=== PATIENT | male | born 1940 | race Caucasian/White ===

== ENCOUNTER 2016-12-01 13:39 | Inpatient (IN) | payer MEDICARE ==
[~2016-12-01] VITALS: Ht 172.7 cm; Wt 73.7 kg
[~2016-12-01 13:39] MED LIST: ASPIRIN EC81 MG PO; PROTONIX 40 MG40 M1 PO
[2016-12-01 16:08] LABS: HEMOGLOBIN 14.3 gm/dl (14.0-17.5); RED BLOOD COUNT 4.81 M/UL (4.20-5.50); WHITE BLOOD COUNT 9.6 K/UL (4.5-11.0)
[2016-12-01 16:47] LABS: BUN/CREATININE RATIO 18 (0-10)
[2016-12-01] MEDS ORDERED: MIRAPEX0.125 MG PO (20:11)
[2016-12-01] MEDS ORDERED: KLONOPIN TAB 00.5 MG PO (20:12)
[2016-12-01] MEDS ORDERED: BUSPAR 5MG TABLE5 MG PO (20:12)
[2016-12-01] MEDS ORDERED: LIPITOR TAB 2020 MG PO (20:12)
[2016-12-01] MEDS ORDERED: NORVASC10 MG PO (20:13)
[2016-12-01] MEDS ORDERED: SOTALOL80 MG PO (20:13)
[2016-12-01] MEDS ORDERED: NEURONTIN 400400 MG PO (20:13)
[2016-12-01] MEDS ORDERED: OXYCODONE-ACET1 EACH PO (20:14)
[2016-12-01] MEDS ORDERED: FOLIC ACID1 MG PO (20:14)
[2016-12-03] MEDS ORDERED: PROVENTIL HFA 61 INH INH (10:20)
[2016-12-03] MEDS ORDERED: SYMBICORT 160-1 INHA INH (10:21)
[2016-12-03] MEDS ORDERED: MAG-OX 400 TAB400 MG PO (10:44)
[2016-12-03] MEDS ORDERED: ADULT LOW DOSE81 MG PO (10:44)
[2016-12-03] MEDS ORDERED: IPRAT-ALBUT 0.5-3 ML INH (10:45)
[2016-12-03] MEDS ORDERED: THERAGRAN TAB1 EA PO (10:45)
[2016-12-03] MEDS ORDERED: VITAMIN B-1 5050 MG PO (10:46)
[2016-12-03] MEDS ORDERED: ALDACTONE25 MG PO (10:46)
== END 2016-12-03 08:09 | disposition home or self-care (01) | DRG 535 ==
LOC: ER1 13:39 → ZEROF 16:05 → M/S 18:58
PROVIDERS: Emergency Medicine; ADMIT Family Medicine
DX: S72.115A Nondisplaced fracture of greater trochanter of left femur, initial encounter for closed fracture (principal); J96.02 Acute respiratory failure with hypercapnia; J96.01 Acute respiratory failure with hypoxia; I50.32 Chronic diastolic (congestive) heart failure; I47.2 Ventricular tachycardia; W19.XXXA Unspecified fall, initial encounter; F19.90 Other psychoactive substance use, unspecified, uncomplicated; I48.0 Paroxysmal atrial fibrillation; I25.10 Atherosclerotic heart disease of native coronary artery without angina pectoris; Z95.5 Presence of coronary angioplasty implant and graft; E87.6 Hypokalemia; Z91.14 Patient's other noncompliance with medication regimen; Z91.19 Patient's noncompliance with other medical treatment and regimen; I10 Essential (primary) hypertension; E78.5 Hyperlipidemia, unspecified; J44.9 Chronic obstructive pulmonary disease, unspecified; K76.0 Fatty (change of) liver, not elsewhere classified; F10.21 Alcohol dependence, in remission; M54.5 Low back pain; G89.29 Other chronic pain; M19.90 Unspecified osteoarthritis, unspecified site; K21.9 Gastro-esophageal reflux disease without esophagitis; F41.9 Anxiety disorder, unspecified; D69.6 Thrombocytopenia, unspecified; I25.2 Old myocardial infarction; F17.210 Nicotine dependence, cigarettes, uncomplicated; Z88.8 Allergy status to other drugs, medicaments and biological substances; Z88.5 Allergy status to narcotic agent; Z88.6 Allergy status to analgesic agent; Z79.899 Other long term (current) drug therapy; Z82.49 Family history of ischemic heart disease and other diseases of the circulatory system; I51.7 Cardiomegaly; M51.9 Unspecified thoracic, thoracolumbar and lumbosacral intervertebral disc disorder
CPT/HCPCS: 36415; 36600; 70450; 71010; 72125; 72192; 73030; 73502; 80053; 82803; 85025; 85610; 85730; 93005; 94640; 94660; 94664; 96374; 97116; 97530; 99285; J1940; J2270; J2930; Q0162

== ENCOUNTER → 2020-09-08 | Outpatient (CLI) | payer MEDICARE ==
[~2020-09-08] MED LIST changes: +ADULT LOW DOSE81 MG PO; +ALDACTONE25 MG PO; +ASPIR-TRIN325 MG PO; +B-121000 MCG PO; +BUSPAR 5MG TABLE5 MG PO; +CARDIZEM CD180 MG PO; +ECOTRIN81 MG PO; +FLEXERIL 10 MG10 MG PO; +FOLIC ACID1 MG PO; +HABITROL 21 MG P1 EA TD; +HYDROCHLOROTHIA25 MG PO; +IMDUR ER TAB 6060 MG PO; +IPRAT-ALBUT 0.5-3 ML INH; +KLONOPIN TAB 00.5 MG PO; +LIORESAL TAB 1010 MG PO; +LIPITOR TAB 2020 MG PO; +MAG-OX 400 TAB400 MG PO; +MIRAPEX0.125 MG PO; +NAPROSYN500 MG PO; +NEURONTIN 400400 MG PO; +NITROSTAT0.4 MG SL; +NORVASC10 MG PO; +NORVASC5 MG PO; +OXYCODONE-ACET1 EACH PO; +OXYCONTIN10 MG PO; +PERCOCET 10-321 EACH PO; +PLAVIX 75 MG TA75 MG PO; +PROAIR HFA8.5 GM INH; +PROTONIX40 MG PO; +PROVENTIL HFA 61 INH INH; +RANEXA500 MG PO; +REMERON15 MG PO; +ROBITUSSIN100 MG/51 PO; +SOTALOL80 MG PO; +SYMBICORT 160-1 INHA INH; +THERAGRAN TAB1 EA PO; +TOPROL XL25 MG PO; +TYLENOL 325MG325 MG PO; +VITAMIN B-1 5050 MG PO; +VITAMIN B-1100 M1 PO; +VITAMIN B-12 PO; +VITAMIN B6 PO; +ZANTAC150 MG PO
[2020-09-08 11:29] LABS: BUN/CREATININE RATIO 22 (0-10)
[2020-09-08 11:35] LABS: HEMOGLOBIN 15.4 gm/dl (14.0-17.5); RED BLOOD COUNT 4.98 M/UL (4.20-5.50); WHITE BLOOD COUNT 7.5 K/UL (4.5-11.0)
[2020-09-12 11:14] LABS: CHOLESTEROL, TOTAL 136 mg/dL (100-199); HDL SIZE 9.6 nm (>=9.2); HDL-C 46 mg/dL (>39); HDL-P (TOTAL) 25.5 umol/L (>=30.5); LARGE HDL-P 5.7 umol/L (>=4.8); LDL SIZE 20.6 nm (>20.5); LDL SIZE 20.6 nm (>=20.8); LDL-C 71 mg/dL (0-99); LDL-P 919 nmol/L (<1000); LP-IR SCORE 46 (<=45); SMALL LDL-P 483 nmol/L (<=527); TRIGLYCERIDES 105 mg/dL (0-149); VLDL SIZE 47.7 nm (<=46.6)
== END ==
LOC: LAB 10:08
PROVIDERS: Emergency Medicine; Internal Medicine Cardiovascular Disease
DX: Z00.00 Encounter for general adult medical examination without abnormal findings (principal); R07.9 Chest pain, unspecified; E78.2 Mixed hyperlipidemia; H61.23 Impacted cerumen, bilateral; I10 Essential (primary) hypertension; I25.10 Atherosclerotic heart disease of native coronary artery without angina pectoris; K80.46 Calculus of bile duct with acute and chronic cholecystitis without obstruction; I65.29 Occlusion and stenosis of unspecified carotid artery; I48.0 Paroxysmal atrial fibrillation
CPT/HCPCS: 36415; 71046; 80053; 84443; 84550; 85025

== ENCOUNTER → 2020-09-11 | Outpatient (CLI) | payer MEDICARE | LOC: ECHO 11:00 | DX: I25.10 Atherosclerotic heart disease of native coronary artery without angina pectoris (principal); R07.9 Chest pain, unspecified; I27.20 Pulmonary hypertension, unspecified; R93.1 Abnormal findings on diagnostic imaging of heart and coronary circulation; I07.1 Rheumatic tricuspid insufficiency | CPT/HCPCS: ECHO; 93306 ==

== ENCOUNTER 2021-02-16 16:57 | Inpatient (IN) | payer MEDICARE ==
[~2021-02-16] VITALS: Ht 172.7 cm; Wt 69.9 kg
[~2021-02-16 16:57] MED LIST changes: -BUSPAR 5MG TABLE5 MG PO; -MIRAPEX0.125 MG PO; -PERCOCET 10-321 EACH PO
[2021-02-16 17:51] LABS: HEMOGLOBIN 13.2 gm/dl (14.0-17.5); RED BLOOD COUNT 4.24 M/UL (4.20-5.50); WHITE BLOOD COUNT 7.1 K/UL (4.5-11.0)
[2021-02-17 04:50] LABS: HEMOGLOBIN 13.4 gm/dl (14.0-17.5); RED BLOOD COUNT 4.46 M/UL (4.20-5.50); WHITE BLOOD COUNT 7.1 K/UL (4.5-11.0)
[2021-02-17] MEDS ORDERED: PERCOCET 10-321 EACH PO (08:43)
[2021-02-17] MEDS ORDERED: GABAPENTIN600 MG PO (10:09)
[2021-02-17] MEDS ORDERED: LASIX 40 MG TAB40 MG PO (10:13)
[2021-02-17] MEDS ORDERED: COZAAR100 MG PO (10:16)
[2021-02-17] MEDS ORDERED: VENTOLIN HFA 66.7 GM INH (10:24)
[2021-02-17] MEDS ORDERED: PROTONIX 40 MG40 M1 PO ×2 (10:26→10:35)
[2021-02-17] MEDS ORDERED: CALCIUM 600 +1 EAC7 PO (10:27)
[2021-02-17] MEDS ORDERED: IPRAT-ALBUT 0.5-3 ML NEB (12:35)
[2021-02-17] MEDS ORDERED: SPIRIVA18 MCG INH (12:35)
[2021-02-17] MEDS ORDERED: OMNICEF 300 MG300 MG PO (12:35)
[2021-02-17] MEDS ORDERED: SYMBICORT 160-1 INHA INH (12:35)
[2021-02-17] MEDS ORDERED: MEDROL DOSEPAK 24 MG PO (12:35)
[2021-02-17] MEDS ORDERED: DOXYCYCLINE HY100 M2 PO (12:35)
[2021-02-17] MEDS ORDERED: NITROSTAT0.4 MG SL (13:07)
[2021-02-17] MEDS ORDERED: MIRAPEX0.125 MG PO (20:11)
[2021-02-17] MEDS ORDERED: BUSPAR 10MG10 MG PO (20:12)
== END 2021-02-17 14:00 | disposition home or self-care (01) | DRG 315 ==
LOC: ER1 16:57 → CDU 20:12
PROVIDERS: Physician Assistant Medical; ADMIT Internal Medicine
DX: I95.9 Hypotension, unspecified (principal); N17.9 Acute kidney failure, unspecified; J96.10 Chronic respiratory failure, unspecified whether with hypoxia or hypercapnia; J44.1 Chronic obstructive pulmonary disease with (acute) exacerbation; I50.32 Chronic diastolic (congestive) heart failure; F17.210 Nicotine dependence, cigarettes, uncomplicated; E78.5 Hyperlipidemia, unspecified; K76.0 Fatty (change of) liver, not elsewhere classified; I25.119 Atherosclerotic heart disease of native coronary artery with unspecified angina pectoris; M19.90 Unspecified osteoarthritis, unspecified site; K21.9 Gastro-esophageal reflux disease without esophagitis; I48.0 Paroxysmal atrial fibrillation; G89.29 Other chronic pain; M54.9 Dorsalgia, unspecified; F10.10 Alcohol abuse, uncomplicated; Z20.822 Contact with and (suspected) exposure to COVID-19; I11.0 Hypertensive heart disease with heart failure; E87.5 Hyperkalemia; I27.20 Pulmonary hypertension, unspecified; Z79.82 Long term (current) use of aspirin; Z95.1 Presence of aortocoronary bypass graft; Z88.8 Allergy status to other drugs, medicaments and biological substances; Z82.49 Family history of ischemic heart disease and other diseases of the circulatory system; Z91.14 Patient's other noncompliance with medication regimen; Z79.02 Long term (current) use of antithrombotics/antiplatelets
CPT/HCPCS: 36600; 71045; 80048; 80053; 82550; 82553; 82803; 83874; 83880; 84484; 85025; 86140; 87040; 93005; 99285; J1250; J1650; U0002

== ENCOUNTER → 2021-02-23 | Outpatient (CLI) | payer MEDICARE ==
[~2021-02-23] MED LIST changes: +BUSPAR 10MG10 MG PO; +CALCIUM 600 +1 EAC7 PO; +COZAAR100 MG PO; +DOXYCYCLINE HY100 M2 PO; +GABAPENTIN600 MG PO; +IPRAT-ALBUT 0.5-3 ML NEB; +LASIX 40 MG TAB40 MG PO; +MEDROL DOSEPAK 24 MG PO; +MIRAPEX0.125 MG PO; +OMNICEF 300 MG300 MG PO; +PERCOCET 10-321 EACH PO; +SPIRIVA18 MCG INH; +VENTOLIN HFA 66.7 GM INH
[2021-02-23 18:04] LABS: BUN/CREATININE RATIO 23 (0-10)
== END ==
LOC: LAB 15:41
PROVIDERS: Internal Medicine
DX: N17.9 Acute kidney failure, unspecified (principal); I50.9 Heart failure, unspecified
CPT/HCPCS: 36415; 80048; 83880

== ENCOUNTER 2021-03-03 13:53 | Observation (INO) | payer MEDICARE, MEDICAID ==
[~2021-03-03] VITALS: Ht 172.7 cm; Wt 73.9 kg
[2021-03-03 14:42] LABS: HEMOGLOBIN 16.4 gm/dl (14.0-17.5); RED BLOOD COUNT 5.08 M/UL (4.20-5.50); WHITE BLOOD COUNT 8.8 K/UL (4.5-11.0)
[2021-03-03 15:15] LABS: BUN/CREATININE RATIO 12 (0-10)
[2021-03-04 04:54] LABS: HEMOGLOBIN 15.7 gm/dl (14.0-17.5); RED BLOOD COUNT 4.94 M/UL (4.20-5.50); WHITE BLOOD COUNT 7.9 K/UL (4.5-11.0)
[2021-03-04 05:40] LABS: BUN/CREATININE RATIO 14 (0-10)
--- NOTE | 2021-03-05 02:33 | NUR ---
PT REFUSES NPO STATUS. STATES HE CAN REFUSE OR DO ANYTHING HE WANTS. PT ADVISED THAT CARDIOLOGY MAY WANT TO DO SOMETHING IN THE AM BUT PT REFUSES. PT ALERT AND ORIENTED X3
[2021-03-05 05:57] LABS: BUN/CREATININE RATIO 16 (0-10)
== END 2021-03-05 13:04 | disposition home or self-care (01) ==
LOC: ER1 13:53 → M/S 16:41 → CDU 16:41 → M/S 23:45
PROVIDERS: Emergency Medicine; Physician Assistant Medical; ADMIT Internal Medicine
DX: R07.2 Precordial pain (principal); I25.2 Old myocardial infarction; Z95.5 Presence of coronary angioplasty implant and graft; F17.200 Nicotine dependence, unspecified, uncomplicated; E87.6 Hypokalemia; R19.7 Diarrhea, unspecified; E78.5 Hyperlipidemia, unspecified; I11.0 Hypertensive heart disease with heart failure; I50.32 Chronic diastolic (congestive) heart failure; I71.4 Abdominal aortic aneurysm, without rupture; K21.9 Gastro-esophageal reflux disease without esophagitis; J44.9 Chronic obstructive pulmonary disease, unspecified; J96.12 Chronic respiratory failure with hypercapnia; J96.11 Chronic respiratory failure with hypoxia; K76.0 Fatty (change of) liver, not elsewhere classified; Z88.8 Allergy status to other drugs, medicaments and biological substances; I25.10 Atherosclerotic heart disease of native coronary artery without angina pectoris; Z20.822 Contact with and (suspected) exposure to COVID-19
CPT/HCPCS: 36415; 71045; 74170; 80048; 80053; 82550; 82553; 83735; 83874; 84484; 85025; 85027; 93005; 99285; G0378; J7030; Q9967; U0002

== ENCOUNTER → 2021-03-20 | Outpatient (CLI) | payer MEDICARE | LOC: HEART 5 03-12 09:15 | DX: R07.9 Chest pain, unspecified (principal); R00.2 Palpitations | CPT/HCPCS: 78452; A9502; J2785 ==

== ENCOUNTER 2021-04-08 16:07 | Emergency (ER) | payer MEDICARE ==
[2021-04-08 17:19] LABS: HEMOGLOBIN 13.9 gm/dl (14.0-17.5); RED BLOOD COUNT 4.43 M/UL (4.20-5.50); WHITE BLOOD COUNT 7.6 K/UL (4.5-11.0)
[2021-04-08 17:52] LABS: BUN/CREATININE RATIO 14 (0-10)
== END 2021-04-08 19:00 | disposition home or self-care (01) ==
LOC: ER1 16:07
PROVIDERS: Family Medicine
DX: R07.9 Chest pain, unspecified (principal); F17.210 Nicotine dependence, cigarettes, uncomplicated
CPT/HCPCS: 71045; 80053; 82550; 82553; 83874; 84484; 85025; 93005; 99285

== ENCOUNTER 2021-04-15 00:15 | Inpatient (IN) | payer MEDICARE ==
[~2021-04-15] VITALS: Ht 175.3 cm; Wt 73.0 kg
[~2021-04-15 00:15] MED LIST changes: -LIPITOR TAB 2020 MG PO
[2021-04-15 01:15] LABS: HEMOGLOBIN 13.7 gm/dl (14.0-17.5); RED BLOOD COUNT 4.28 M/UL (4.20-5.50); WHITE BLOOD COUNT 9.2 K/UL (4.5-11.0)
[2021-04-15 02:29] LABS: BUN/CREATININE RATIO 15 (0-10)
[2021-04-15] MEDS ORDERED: GABAPENTIN600 MG PO (07:37)
[2021-04-15] MEDS ORDERED: LOSARTAN POTAS100 MG PO (07:39)
[2021-04-15] MEDS ORDERED: RANEXA1000 MG PO ×2 (07:41→08:09)
[2021-04-15] MEDS ORDERED: PROTONIX40 MG PO (08:11)
[2021-04-15] MEDS ORDERED: VITAMIN C 500500 MG PO (08:12)
[2021-04-15] MEDS ORDERED: PROAIR HFA8.5 GM INH (08:12)
[2021-04-15] MEDS ORDERED: SYMBICORT 16010.2 GM INH (08:13)
[2021-04-15] MEDS ORDERED: EMERGEN-C 500500 MG PO (08:15)
[2021-04-15] MEDS ORDERED: LIPITOR40 MG PO (20:12)
[2021-04-16 03:08] LABS: HEMOGLOBIN 11.9 gm/dl (14.0-17.5); WHITE BLOOD COUNT 9.3 K/UL (4.5-11.0)
[2021-04-16 03:12] LABS: RED BLOOD COUNT 3.78 M/UL (4.20-5.50)
[2021-04-16 03:26] LABS: BUN/CREATININE RATIO 18 (0-10)
[2021-04-17 03:27] LABS: RED BLOOD COUNT 3.82 M/UL (4.20-5.50)
[2021-04-17 04:12] LABS: BUN/CREATININE RATIO 27 (0-10)
--- NOTE | 2021-04-17 23:43 | NUR ---
PT EXPRESSING CONCERNS WITH WEARING HIS NEWLY SET UP TRILOGY MACHINE. WORRIES THAT THERE ISN'T ENOUGH PRESSURE COMING THROUGH TRILOGY. REQUESTING TO WEAR THE HOSPITAL'S BIPAP LIKE HE HAD BEEN WEARING AND ASK FOR ADJUSTMENTS TO THE TRILOGY TOMORROW.
[2021-04-18 02:51] LABS: HEMOGLOBIN 12.5 gm/dl (14.0-17.5); RED BLOOD COUNT 3.96 M/UL (4.20-5.50); WHITE BLOOD COUNT 11.5 K/UL (4.5-11.0)
[2021-04-18 06:20] LABS: BUN/CREATININE RATIO 24 (0-10)
[2021-04-19 03:16] LABS: HEMOGLOBIN 13.3 gm/dl (14.0-17.5); RED BLOOD COUNT 4.25 M/UL (4.20-5.50)
[2021-04-19 03:35] LABS: BUN/CREATININE RATIO 29 (0-10)
--- NOTE | 2021-04-19 10:00 | NUR ---
SPOKE WITH PULMONOLOGY AND CASE MANAGEMENT REGARDING TRILOGY SETTINGS. THEY STATE THAT THE COMPANY WILL COME OUT TO ADJUST THE SETTINGS WHEN PATIENT IS DISCHARGED.
[2021-04-19] MEDS ORDERED: CEFDINIR300 MG PO (10:07)
[2021-04-19] MEDS ORDERED: NICOTINE PATCH1 EAC2 TOP (10:07)
[2021-04-19] MEDS ORDERED: IPRAT-ALBUT 0.5-3 ML NEB (10:07)
[2021-04-19] MEDS ORDERED: MEDROL DOSEPAK 24 MG PO (10:15)
== END 2021-04-19 12:36 | disposition home or self-care (01) | DRG 189 ==
LOC: ER1 00:15 → PROG CARE 03:52 → CDU 03:52 → PROG CARE 07:26
PROVIDERS: Family Medicine; Internal Medicine; ADMIT Internal Medicine
PROC: 5A09457 Assistance with Respiratory Ventilation, 24-96 Consecutive Hours, Continuous Positive Airway Pressure (ICD-10-PCS; principal; 2021-04-15)
DX: J96.21 Acute and chronic respiratory failure with hypoxia (principal); I50.32 Chronic diastolic (congestive) heart failure; J44.1 Chronic obstructive pulmonary disease with (acute) exacerbation; J96.22 Acute and chronic respiratory failure with hypercapnia; Z20.822 Contact with and (suspected) exposure to COVID-19; I11.0 Hypertensive heart disease with heart failure; K76.0 Fatty (change of) liver, not elsewhere classified; K21.9 Gastro-esophageal reflux disease without esophagitis; F10.10 Alcohol abuse, uncomplicated; F17.210 Nicotine dependence, cigarettes, uncomplicated; E78.5 Hyperlipidemia, unspecified; I27.20 Pulmonary hypertension, unspecified; F41.9 Anxiety disorder, unspecified; E87.6 Hypokalemia; J84.10 Pulmonary fibrosis, unspecified; E88.09 Other disorders of plasma-protein metabolism, not elsewhere classified; I71.4 Abdominal aortic aneurysm, without rupture; M19.91 Primary osteoarthritis, unspecified site; I48.0 Paroxysmal atrial fibrillation; M54.9 Dorsalgia, unspecified; G89.29 Other chronic pain; I25.10 Atherosclerotic heart disease of native coronary artery without angina pectoris; Z95.1 Presence of aortocoronary bypass graft; Z95.5 Presence of coronary angioplasty implant and graft; Z82.49 Family history of ischemic heart disease and other diseases of the circulatory system; Z88.8 Allergy status to other drugs, medicaments and biological substances; Z88.6 Allergy status to analgesic agent; Z79.82 Long term (current) use of aspirin; Z79.899 Other long term (current) drug therapy; Z79.52 Long term (current) use of systemic steroids; Z79.02 Long term (current) use of antithrombotics/antiplatelets
CPT/HCPCS: ECHO; 36415; 36600; 71045; 80048; 80053; 81001; 82550; 82553; 82803; 83605; 84484; 85025; 85027; 85610; 86140; 87040; 93005; 93306; 94640; 94660; 94664; 94668; 94760; 96374; 97161; 99285; C9113; J0696; J1650; J2920; J2930; U0002

== ENCOUNTER 2021-04-26 07:56 | Inpatient (IN) | payer MEDICARE, MEDICAID ==
[~2021-04-26] VITALS: Ht 172.7 cm; Wt 73.0 kg
[~2021-04-26 07:56] MED LIST changes: +CEFDINIR300 MG PO; +COZAAR 50MG TAB50 MG PO; +EMERGEN-C 500500 MG PO; +LIPITOR40 MG PO; +NICOTINE PATCH1 EAC2 TOP; +RANEXA1000 MG PO; +SYMBICORT 16010.2 GM INH; +VITAMIN C 500500 MG PO
[2021-04-26 08:17] LABS: HEMOGLOBIN 13.9 gm/dl (14.0-17.5); RED BLOOD COUNT 4.36 M/UL (4.20-5.50)
[2021-04-26 08:37] LABS: BUN/CREATININE RATIO 27 (0-10)
[2021-04-26] MEDS ORDERED: ISOSORBIDE MONO60 MG PO (10:21)
[2021-04-26] MEDS ORDERED: ZINC50 M3 PO (10:25)
[2021-04-26] MEDS ORDERED: TYLENOL EXTRA500 MG PO (10:26)
[2021-04-26] MEDS ORDERED: VITAMIN D210 MCG PO (10:26)
[2021-04-26 13:27] LABS: HEMOGLOBIN 14.7 gm/dl (14.0-17.5); RED BLOOD COUNT 4.62 M/UL (4.20-5.50)
[2021-04-26 13:29] LABS: WHITE BLOOD COUNT 26.8 K/UL (4.5-11.0)
--- NOTE | 2021-04-26 16:05 | NUR ---
1142: PATIENT ARRIVED TO ICU. LUI GONZALEZ TRANSPORTING WITH PATIENT. PATIENT ON VENTILATOR, R IJ IN PLACE.
--- NOTE | 2021-04-26 16:06 | NUR ---
1230: TTM INITIATED AND PRTOTOCOL BEING MANAGED BY DR. GLEASON. DR. GLEASON AWARE OF PATIENT CODE STATUS AND ORDERS TO CONTINUE WITH TTM PROTOCOL WRITTEN. PADS PLACES APPROPRIATLEY ACCORDING TO DIRECTIONS ON PADS. ESOPHOGEAL TEMP PROBE AND RECTAL PROBE.
[2021-04-26 20:53] LABS: WHITE BLOOD COUNT 24.7 K/UL (4.5-11.0)
[2021-04-26 20:58] LABS: RED BLOOD COUNT 3.83 M/UL (4.20-5.50)
[2021-04-26 21:22] LABS: BUN/CREATININE RATIO 34 (0-10)
[2021-04-27 03:31] LABS: HEMOGLOBIN 11.9 gm/dl (14.0-17.5); RED BLOOD COUNT 3.79 M/UL (4.20-5.50)
[2021-04-27 04:01] LABS: BUN/CREATININE RATIO 34 (0-10)
[2021-04-27 09:45] LABS: HEMOGLOBIN 11.5 gm/dl (14.0-17.5); RED BLOOD COUNT 3.62 M/UL (4.20-5.50); WHITE BLOOD COUNT 17.8 K/UL (4.5-11.0)
[2021-04-27 10:11] LABS: BUN/CREATININE RATIO 30 (0-10)
[2021-04-27 15:21] LABS: HEMOGLOBIN 11.7 gm/dl (14.0-17.5); RED BLOOD COUNT 3.72 M/UL (4.20-5.50); WHITE BLOOD COUNT 21.9 K/UL (4.5-11.0)
[2021-04-27 16:00] LABS: BUN/CREATININE RATIO 26 (0-10)
[2021-04-27 20:28] LABS: HEMOGLOBIN 11.4 gm/dl (14.0-17.5); RED BLOOD COUNT 3.62 M/UL (4.20-5.50); WHITE BLOOD COUNT 24.3 K/UL (4.5-11.0)
[2021-04-28 02:20] LABS: HEMOGLOBIN 11.4 gm/dl (14.0-17.5); RED BLOOD COUNT 3.57 M/UL (4.20-5.50); WHITE BLOOD COUNT 25.3 K/UL (4.5-11.0)
[2021-04-28 02:44] LABS: BUN/CREATININE RATIO 24 (0-10)
[2021-04-28 06:59] LABS: BUN/CREATININE RATIO 23 (0-10)
[2021-04-28 07:57] LABS: HEMOGLOBIN 11.2 gm/dl (14.0-17.5); RED BLOOD COUNT 3.61 M/UL (4.20-5.50)
[2021-04-28 08:26] LABS: WHITE BLOOD COUNT 32.5 K/UL (4.5-11.0)
[2021-04-29 05:05] LABS: HEMOGLOBIN 11.5 gm/dl (14.0-17.5); RED BLOOD COUNT 3.63 M/UL (4.20-5.50)
[2021-04-29 05:07] LABS: WHITE BLOOD COUNT 16.6 K/UL (4.5-11.0)
[2021-04-29 05:47] LABS: BUN/CREATININE RATIO 25 (0-10)
[2021-04-30 06:16] LABS: HEMOGLOBIN 12.1 gm/dl (14.0-17.5); RED BLOOD COUNT 3.85 M/UL (4.20-5.50)
[2021-04-30 06:19] LABS: BUN/CREATININE RATIO 23 (0-10)
[2021-04-30 06:22] LABS: WHITE BLOOD COUNT 8.9 K/UL (4.5-11.0)
[2021-05-01 04:27] LABS: HEMOGLOBIN 11.4 gm/dl (14.0-17.5); RED BLOOD COUNT 3.62 M/UL (4.20-5.50)
[2021-05-01 05:12] LABS: BUN/CREATININE RATIO 25 (0-10)
[2021-05-02 05:51] LABS: HEMOGLOBIN 11.2 gm/dl (14.0-17.5); RED BLOOD COUNT 3.59 M/UL (4.20-5.50); WHITE BLOOD COUNT 7.5 K/UL (4.5-11.0)
[2021-05-02 06:34] LABS: BUN/CREATININE RATIO 17 (0-10)
[2021-05-03 04:53] LABS: HEMOGLOBIN 10.9 gm/dl (14.0-17.5); RED BLOOD COUNT 3.43 M/UL (4.20-5.50); WHITE BLOOD COUNT 8.7 K/UL (4.5-11.0)
[2021-05-03 05:24] LABS: BUN/CREATININE RATIO 18 (0-10)
[2021-05-04 05:23] LABS: BUN/CREATININE RATIO 26 (0-10)
[2021-05-05 04:38] LABS: HEMOGLOBIN 10.2 gm/dl (14.0-17.5); RED BLOOD COUNT 3.25 M/UL (4.20-5.50); WHITE BLOOD COUNT 7.1 K/UL (4.5-11.0)
[2021-05-05 04:54] LABS: BUN/CREATININE RATIO 30 (0-10)
--- NOTE | 2021-05-06 03:16 | NUR ---
05/05/21 2200 NG TUBE STOPPED UP, MEDS WASTED AND THEN PULLED AGAIN AND GIVEN
[2021-05-06 09:16] LABS: HEMOGLOBIN 10.2 gm/dl (14.0-17.5); RED BLOOD COUNT 3.28 M/UL (4.20-5.50); WHITE BLOOD COUNT 7.1 K/UL (4.5-11.0)
[2021-05-06 09:40] LABS: BUN/CREATININE RATIO 34 (0-10)
[2021-05-07 04:09] LABS: HEMOGLOBIN 10.4 gm/dl (14.0-17.5); RED BLOOD COUNT 3.34 M/UL (4.20-5.50)
[2021-05-07 04:15] LABS: WHITE BLOOD COUNT 9.5 K/UL (4.5-11.0)
[2021-05-07 04:40] LABS: BUN/CREATININE RATIO 33 (0-10)
[2021-05-08 05:13] LABS: HEMOGLOBIN 11.6 gm/dl (14.0-17.5)
[2021-05-08 05:28] LABS: RED BLOOD COUNT 3.7 M/UL (4.20-5.50); WHITE BLOOD COUNT 12.5 K/UL (4.5-11.0)
[2021-05-08 05:34] LABS: BUN/CREATININE RATIO 35 (0-10)
[2021-05-09 03:09] LABS: RED BLOOD COUNT 3.62 M/UL (4.20-5.50); WHITE BLOOD COUNT 11.1 K/UL (4.5-11.0)
[2021-05-09 03:32] LABS: BUN/CREATININE RATIO 27 (0-10)
--- NOTE | 2021-05-09 17:54 | NUR ---
PATIENT ARRIVED TO FLOOR FROM ICU. PATIENT IS ALERT AND VERBAL. ORIENTED TO SELF ONLY. FAMILY AT BEDSIDE. 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 OXYGEN IN USE AT 2LPM/NC. NO ACUTE DISTRESS NOTED. CALL [facility] IN [facility]. ORIENTED PATIENT'S FAMILY TO FLOOR.
[2021-05-10 06:49] LABS: HEMOGLOBIN 12.1 gm/dl (14.0-17.5); RED BLOOD COUNT 3.95 M/UL (4.20-5.50)
[2021-05-10 07:14] LABS: BUN/CREATININE RATIO 31 (0-10)
[2021-05-11 08:03] LABS: HEMOGLOBIN 13.3 gm/dl (14.0-17.5); RED BLOOD COUNT 4.26 M/UL (4.20-5.50); WHITE BLOOD COUNT 9.7 K/UL (4.5-11.0)
[2021-05-12 06:59] LABS: HEMOGLOBIN 11.8 gm/dl (14.0-17.5); WHITE BLOOD COUNT 8.8 K/UL (4.5-11.0)
[2021-05-12 07:11] LABS: RED BLOOD COUNT 3.78 M/UL (4.20-5.50)
--- NOTE | 2021-05-13 06:55 | NUR ---
DAUGHTER HAD ORIGINALLY REFUSED GABAPENTIN FOR PT. SHE STATED THAT SHE WANTED THE PT TO SLEEP AND NOT BE WOKEN UP. GABAPENTIN WAS RETURNED TO THE [facility]. PT NOW REQUESTING 0600 GABAPENTIN. GABAPENTIN ADMINISTERED.
[2021-05-13 08:32] LABS: HEMOGLOBIN 11.3 gm/dl (14.0-17.5); RED BLOOD COUNT 3.67 M/UL (4.20-5.50); WHITE BLOOD COUNT 6.4 K/UL (4.5-11.0)
--- NOTE | 2021-05-13 08:35 | NUR ---
0745 Patient unable to void this AM, states his bladder is hurting. Bladder scanned patient, noted 150ml. Patient had been voiding well since ibarra catheter removed yesterday. Dr Samson called, order obtained for straight cath & obtain urine specimen.
[2021-05-13 09:15] LABS: BUN/CREATININE RATIO 31 (0-10)
[2021-05-14 07:43] LABS: HEMOGLOBIN 10.3 gm/dl (14.0-17.5); RED BLOOD COUNT 3.39 M/UL (4.20-5.50); WHITE BLOOD COUNT 5.2 K/UL (4.5-11.0)
[2021-05-14 08:05] LABS: BUN/CREATININE RATIO 21 (0-10)
--- NOTE | 2021-05-14 10:00 | NUR ---
RN SPOKE WITH DR. VILLAREAL ABOUT PATIENT'S POSSIBLE DISCHARGE TODAY. RN ASKED IF MD WANTED TO CONTINUE PATIENT'S CATHETER AND BLADDER TRAINING, MD STATED YES. RN ASKED MD IF PATIENT WAS TO CONTINUE UTILIZING BIPAP AT FACILITY, MD STATED YES AND ASKED RN TO OBTAIN BIPAP SETTINGS SO AN ORDER COULD BE SENT TO FACILITY. RN OBTAINED SETTINGS AND GAVE THEM TO MD.
[2021-05-14] MEDS ORDERED: ELIQUIS5 MG PO (11:42)
[2021-05-14] MEDS ORDERED: DIGOXIN125 MCG PO (11:45)
[2021-05-14] MEDS ORDERED: FLUZONE QU IM (11:46)
[2021-05-14] MEDS ORDERED: NICOTINE PATCH1 EAC5 TD (11:48)
[2021-05-14] MEDS ORDERED: COREG12.5 MG PO (11:49)
[2021-05-14] MEDS ORDERED: XOPENEX1.25 MG/3 INH (11:49)
[2021-05-14] MEDS ORDERED: K-TAB ER20 MEQ PO (11:50)
--- NOTE | 2021-05-14 15:00 | NUR ---
REPORT CALLED TO MAUREEN AT [facility].
== END 2021-05-14 16:04 | DRG 207 ==
LOC: ER1 07:56 → CCU 09:22 → MED SURG 4 09:22 → CDU 09:22 → CCU 11:42 → MED SURG 4 05-09 17:44
PROVIDERS: Emergency Medicine; Internal Medicine; Internal Medicine Pulmonary Disease; Student in an Organized Health Care Education/Training Program; ADMIT Internal Medicine
PROC: 5A1955Z Respiratory Ventilation, Greater than 96 Consecutive Hours (ICD-10-PCS; principal; 2021-04-26)
PROC: 0BH17EZ Insertion of Endotracheal Airway into Trachea, Via Natural or Artificial Opening (ICD-10-PCS; 2021-04-26)
PROC: 02HV33Z Insertion of Infusion Device into Superior Vena Cava, Percutaneous Approach (ICD-10-PCS; 2021-04-26)
PROC: 5A12012 Performance of Cardiac Output, Single, Manual (ICD-10-PCS; 2021-05-02)
PROC: 0DH67UZ Insertion of Feeding Device into Stomach, Via Natural or Artificial Opening (ICD-10-PCS; 2021-05-02)
PROC: 4A10X4Z Monitoring of Central Nervous Electrical Activity, External Approach (ICD-10-PCS; 2021-05-02)
PROC: 5A09557 Assistance with Respiratory Ventilation, Greater than 96 Consecutive Hours, Continuous Positive Airway Pressure (ICD-10-PCS; 2021-05-07)
DX: J96.01 Acute respiratory failure with hypoxia (principal); A41.9 Sepsis, unspecified organism; I46.9 Cardiac arrest, cause unspecified; J15.1 Pneumonia due to Pseudomonas; G93.41 Metabolic encephalopathy; R65.21 Severe sepsis with septic shock; E87.2 Acidosis; J44.1 Chronic obstructive pulmonary disease with (acute) exacerbation; J44.0 Chronic obstructive pulmonary disease with (acute) lower respiratory infection; J98.11 Atelectasis; I50.32 Chronic diastolic (congestive) heart failure; I42.9 Cardiomyopathy, unspecified; I47.2 Ventricular tachycardia; G93.1 Anoxic brain damage, not elsewhere classified; Z20.822 Contact with and (suspected) exposure to COVID-19; Z66 Do not resuscitate; R45.1 Restlessness and agitation; I25.10 Atherosclerotic heart disease of native coronary artery without angina pectoris; I11.0 Hypertensive heart disease with heart failure; F41.9 Anxiety disorder, unspecified; R33.9 Retention of urine, unspecified; K21.9 Gastro-esophageal reflux disease without esophagitis; I27.20 Pulmonary hypertension, unspecified; I73.9 Peripheral vascular disease, unspecified; T38.0X5A Adverse effect of glucocorticoids and synthetic analogues, initial encounter; S43.005A Unspecified dislocation of left shoulder joint, initial encounter; I08.1 Rheumatic disorders of both mitral and tricuspid valves; M85.80 Other specified disorders of bone density and structure, unspecified site; G89.29 Other chronic pain; M54.9 Dorsalgia, unspecified; E78.5 Hyperlipidemia, unspecified; M19.90 Unspecified osteoarthritis, unspecified site; J44.9 Chronic obstructive pulmonary disease, unspecified; I48.91 Unspecified atrial fibrillation; Z95.1 Presence of aortocoronary bypass graft; Z79.82 Long term (current) use of aspirin; Z79.02 Long term (current) use of antithrombotics/antiplatelets; Z82.49 Family history of ischemic heart disease and other diseases of the circulatory system; Z88.5 Allergy status to narcotic agent; Z88.8 Allergy status to other drugs, medicaments and biological substances; Z99.81 Dependence on supplemental oxygen; Z87.891 Personal history of nicotine dependence; Z23 Encounter for immunization
CPT/HCPCS: 36415; 36556; 36600; 51702; 70450; 70551; 71045; 73020; 73030; 80048; 80053; 80202; 81001; 82040; 82550; 82553; 82803; 82962; 83605; 83735; 83874; 83880; 84100; 84132; 84484; 85025; 85027; 85384; 85610; 85730; 86850; 86900; 86901; 87040; 87070; 87077; 87186; 87205; 90662; 92526; 92610; 93005; 94002; 94003; 94640; 94660; 94664; 94760; 95819; 97110-GP-CQ; 97112; 97162; 97166; 97530; 97530-GP-CQ; 97535; 99285; A6212; C1751; C9113; G0008; J1160; J1205; J1650; J1720; J1940; J2060; J2250; J2270; J2543; J2704; J3010; J3370; J3480; J7030; J7040; J7050; J7070; Q9967; U0002

== ENCOUNTER 2021-06-15 02:26 | Inpatient (IN) | payer MEDICARE ==
[~2021-06-15] VITALS: Ht 172.7 cm; Wt 69.9 kg
[~2021-06-15 02:26] MED LIST changes: +COREG12.5 MG PO; -COZAAR 50MG TAB50 MG PO; +DIGOXIN125 MCG PO; +ELIQUIS5 MG PO; +FLUZONE QU IM; +K-TAB ER20 MEQ PO; -MIRAPEX0.125 MG PO; +NICOTINE PATCH1 EAC5 TD; -PERCOCET 10-321 EACH PO; +VITAMIN D210 MCG PO; +XOPENEX1.25 MG/3 INH; +ZINC50 M3 PO
[2021-06-15 03:34] LABS: HEMOGLOBIN 11.3 gm/dl (14.0-17.5); RED BLOOD COUNT 3.59 M/UL (4.20-5.50); WHITE BLOOD COUNT 7.7 K/UL (4.5-11.0)
[2021-06-15 03:55] LABS: BUN/CREATININE RATIO 6 (0-10)
[2021-06-15] MEDS ORDERED: GABAPENTIN600 MG PO (07:37)
[2021-06-15] MEDS ORDERED: COZAAR 50MG TAB50 MG PO (07:39)
[2021-06-15] MEDS ORDERED: RANEXA500 MG PO (08:09)
[2021-06-15] MEDS ORDERED: PERCOCET 10-321 EACH PO (08:43)
[2021-06-15] MEDS ORDERED: ISOSORBIDE MONO60 MG PO (10:21)
[2021-06-15] MEDS ORDERED: TYLENOL EXTRA500 MG PO (10:26)
[2021-06-15] MEDS ORDERED: LEXAPRO10 MG PO (12:26)
[2021-06-15] MEDS ORDERED: MIRALAX17 GM PO (12:27)
[2021-06-15] MEDS ORDERED: NITROSTAT0.4 MG SL (12:27)
[2021-06-15] MEDS ORDERED: MIRAPEX0.25 MG PO (20:11)
[2021-06-16 04:01] LABS: RED BLOOD COUNT 3.56 M/UL (4.20-5.50); WHITE BLOOD COUNT 6.6 K/UL (4.5-11.0)
[2021-06-16 04:32] LABS: BUN/CREATININE RATIO 9 (0-10)
[2021-06-17 10:39] LABS: HEMOGLOBIN 10.3 gm/dl (14.0-17.5); RED BLOOD COUNT 3.36 M/UL (4.20-5.50); WHITE BLOOD COUNT 5.5 K/UL (4.5-11.0)
[2021-06-17 11:04] LABS: BUN/CREATININE RATIO 6 (0-10)
[2021-06-18 03:59] LABS: HEMOGLOBIN 10.6 gm/dl (14.0-17.5); RED BLOOD COUNT 3.49 M/UL (4.20-5.50); WHITE BLOOD COUNT 5.6 K/UL (4.5-11.0)
[2021-06-18 04:16] LABS: BUN/CREATININE RATIO 10 (0-10)
[2021-06-19 03:40] LABS: HEMOGLOBIN 11.3 gm/dl (14.0-17.5); RED BLOOD COUNT 3.68 M/UL (4.20-5.50); WHITE BLOOD COUNT 5.1 K/UL (4.5-11.0)
[2021-06-19 03:57] LABS: BUN/CREATININE RATIO 4 (0-10)
[2021-06-19] MEDS ORDERED: MEROPENEM1 GM IV (10:31)
== END 2021-06-19 19:57 | disposition home health service (06) | DRG 177 ==
LOC: ER1 02:26 → PROG CARE 08:57 → CDU 08:57 → PROG CARE 14:19
PROVIDERS: Emergency Medicine; Internal Medicine Pulmonary Disease; Student in an Organized Health Care Education/Training Program; ADMIT Internal Medicine
PROC: 0B9K8ZX Drainage of Right Lung, Via Natural or Artificial Opening Endoscopic, Diagnostic (ICD-10-PCS; 2021-06-15)
PROC: 0B9F8ZX Drainage of Right Lower Lung Lobe, Via Natural or Artificial Opening Endoscopic, Diagnostic (ICD-10-PCS; principal; 2021-06-15 11:11)
DX: J69.0 Pneumonitis due to inhalation of food and vomit (principal); J96.21 Acute and chronic respiratory failure with hypoxia; Z66 Do not resuscitate; Z20.822 Contact with and (suspected) exposure to COVID-19; J96.22 Acute and chronic respiratory failure with hypercapnia; I46.8 Cardiac arrest due to other underlying condition; J44.0 Chronic obstructive pulmonary disease with (acute) lower respiratory infection; J98.19 Other pulmonary collapse; G81.94 Hemiplegia, unspecified affecting left nondominant side; I48.20 Chronic atrial fibrillation, unspecified; I50.32 Chronic diastolic (congestive) heart failure; K83.09 Other cholangitis; I25.10 Atherosclerotic heart disease of native coronary artery without angina pectoris; E78.5 Hyperlipidemia, unspecified; I11.0 Hypertensive heart disease with heart failure; F10.10 Alcohol abuse, uncomplicated; J44.9 Chronic obstructive pulmonary disease, unspecified; K80.20 Calculus of gallbladder without cholecystitis without obstruction; E78.00 Pure hypercholesterolemia, unspecified; G89.4 Chronic pain syndrome; L89.322 Pressure ulcer of left buttock, stage 2; F41.9 Anxiety disorder, unspecified; I48.0 Paroxysmal atrial fibrillation; D63.8 Anemia in other chronic diseases classified elsewhere; I73.9 Peripheral vascular disease, unspecified; I27.20 Pulmonary hypertension, unspecified; F31.9 Bipolar disorder, unspecified; E11.9 Type 2 diabetes mellitus without complications; M19.90 Unspecified osteoarthritis, unspecified site; I71.2 Thoracic aortic aneurysm, without rupture; R53.81 Other malaise; Z79.01 Long term (current) use of anticoagulants; Z88.8 Allergy status to other drugs, medicaments and biological substances; Z88.6 Allergy status to analgesic agent; Z88.1 Allergy status to other antibiotic agents; Z91.040 Latex allergy status; Z82.49 Family history of ischemic heart disease and other diseases of the circulatory system; Z95.5 Presence of coronary angioplasty implant and graft; Z99.81 Dependence on supplemental oxygen; Z95.1 Presence of aortocoronary bypass graft; Z87.891 Personal history of nicotine dependence; Z86.73 Personal history of transient ischemic attack (TIA), and cerebral infarction without residual deficits; I25.2 Old myocardial infarction
CPT/HCPCS: 36415; 36600; 71045; 71046; 74230; 80048; 80053; 82550; 82553; 82803; 82962; 83874; 84484; 85025; 85027; 87015; 87040; 87070; 87077; 87116; 87186; 87205; 87206; 92526; 92611-GN; 93005; 94640; 94664; 94667; 94668; 94760; 96374; 96375; 97112; 97162; 97166; 97530; 99285; C1751; J0456; J0696; J2185; J2543; J3370; J7030; Q9967; U0002

== ENCOUNTER 2021-10-16 10:40 | Emergency (ER) | payer MEDICARE ==
[~2021-10-16 10:40] MED LIST changes: +COZAAR 50MG TAB50 MG PO; +ISOSORBIDE MONO60 MG PO; +LEXAPRO10 MG PO; +MEROPENEM1 GM IV; +MIRALAX17 GM PO; +MIRAPEX0.25 MG PO; +PERCOCET 10-321 EACH PO; +TYLENOL EXTRA500 MG PO
[2021-10-16 11:18] LABS: HEMOGLOBIN 10.6 gm/dl (14.0-17.5); RED BLOOD COUNT 3.44 M/UL (4.20-5.50); WHITE BLOOD COUNT 7.5 K/UL (4.5-11.0)
[2021-10-16 11:41] LABS: BUN/CREATININE RATIO 14 (0-10)
== END 2021-10-16 22:00 | disposition home or self-care (01) ==
LOC: ER1 10:40
PROVIDERS: Physician Assistant
DX: R09.02 Hypoxemia (principal); Z20.822 Contact with and (suspected) exposure to COVID-19; I11.9 Hypertensive heart disease without heart failure; I25.2 Old myocardial infarction; J44.9 Chronic obstructive pulmonary disease, unspecified; I48.91 Unspecified atrial fibrillation; Z88.5 Allergy status to narcotic agent; Z88.8 Allergy status to other drugs, medicaments and biological substances; Z87.891 Personal history of nicotine dependence; Z99.81 Dependence on supplemental oxygen
CPT/HCPCS: 0240U; 36600; 71045; 80053; 82550; 82553; 82803; 83880; 84484; 85025; 93005; 99284

== ENCOUNTER 2021-11-29 12:49 | Emergency (ER) | payer MEDICARE, OTHER ==
[2021-11-29 13:43] LABS: HEMOGLOBIN 10.6 gm/dl (14.0-17.5); RED BLOOD COUNT 3.48 M/UL (4.20-5.50); WHITE BLOOD COUNT 5.1 K/UL (4.5-11.0)
[2021-11-29 14:22] LABS: BUN/CREATININE RATIO 16 (0-10)
== END 2021-11-29 16:10 | disposition home or self-care (01) ==
LOC: ER1 12:49
PROVIDERS: Physician Assistant
DX: I16.0 Hypertensive urgency (principal); I48.91 Unspecified atrial fibrillation; Z86.73 Personal history of transient ischemic attack (TIA), and cerebral infarction without residual deficits; J44.9 Chronic obstructive pulmonary disease, unspecified; Z95.1 Presence of aortocoronary bypass graft; Z88.5 Allergy status to narcotic agent; Z87.891 Personal history of nicotine dependence
CPT/HCPCS: 71046; 80053; 81001; 82550; 82553; 83605; 83735; 83880; 84484; 85025; 87086; 93005; 99284

== ENCOUNTER → 2022-01-08 | Day surgery (SDC) | payer MEDICARE | END | disposition home or self-care (01) | LOC: OR 06:26 | DX: K22.4 Dyskinesia of esophagus (principal); K25.9 Gastric ulcer, unspecified as acute or chronic, without hemorrhage or perforation; K44.9 Diaphragmatic hernia without obstruction or gangrene; K29.60 Other gastritis without bleeding; K31.A0 Gastric intestinal metaplasia, unspecified; K31.9 Disease of stomach and duodenum, unspecified; I25.10 Atherosclerotic heart disease of native coronary artery without angina pectoris; I11.0 Hypertensive heart disease with heart failure; I50.9 Heart failure, unspecified; I48.91 Unspecified atrial fibrillation; J44.9 Chronic obstructive pulmonary disease, unspecified; K21.9 Gastro-esophageal reflux disease without esophagitis; F17.210 Nicotine dependence, cigarettes, uncomplicated; Z88.5 Allergy status to narcotic agent; Z88.1 Allergy status to other antibiotic agents; Z88.8 Allergy status to other drugs, medicaments and biological substances; Z79.01 Long term (current) use of anticoagulants; Z79.899 Other long term (current) drug therapy | CPT/HCPCS: J2704; J7040 ==

== ENCOUNTER 2022-01-22 03:07 | Inpatient (IN) | payer MEDICARE, OTHER ==
[~2022-01-22] VITALS: Ht 172.7 cm; Wt 69.4 kg
[2022-01-22 03:31] LABS: RED BLOOD COUNT 3.68 M/UL (4.20-5.50); WHITE BLOOD COUNT 7.5 K/UL (4.5-11.0)
[2022-01-22 04:03] LABS: BUN/CREATININE RATIO 15 (0-10)
[2022-01-22] MEDS ORDERED: ZINC50 MG PO (10:42)
[2022-01-23 12:33] LABS: HEMOGLOBIN 9.8 gm/dl (14.0-17.5)
[2022-01-23 12:34] LABS: RED BLOOD COUNT 3.28 M/UL (4.20-5.50); WHITE BLOOD COUNT 4.9 K/UL (4.5-11.0)
[2022-01-23 13:09] LABS: BUN/CREATININE RATIO 27 (0-10)
[2022-01-24 04:51] LABS: HEMOGLOBIN 9.7 gm/dl (14.0-17.5); RED BLOOD COUNT 3.22 M/UL (4.20-5.50)
[2022-01-24 05:08] LABS: WHITE BLOOD COUNT 6.3 K/UL (4.5-11.0)
[2022-01-24 05:14] LABS: BUN/CREATININE RATIO 29 (0-10)
[2022-01-25 03:13] LABS: HEMOGLOBIN 10.2 gm/dl (14.0-17.5); RED BLOOD COUNT 3.43 M/UL (4.20-5.50); WHITE BLOOD COUNT 6.3 K/UL (4.5-11.0)
[2022-01-25 03:37] LABS: BUN/CREATININE RATIO 48 (0-10)
[2022-01-26 02:47] LABS: HEMOGLOBIN 10.4 gm/dl (14.0-17.5); RED BLOOD COUNT 3.48 M/UL (4.20-5.50)
[2022-01-26 03:09] LABS: BUN/CREATININE RATIO 44 (0-10)
[2022-01-27 01:23] LABS: RED BLOOD COUNT 3.39 M/UL (4.20-5.50)
[2022-01-27 01:25] LABS: WHITE BLOOD COUNT 5.8 K/UL (4.5-11.0)
[2022-01-27 01:35] LABS: BUN/CREATININE RATIO 43 (0-10)
[2022-01-28] MEDS ORDERED: CEFUROXIME250 MG PO (09:24)
== END 2022-01-28 12:25 | disposition home health service (06) | DRG 208 ==
LOC: ER1 03:07 → CCU 05:32 → CDU 05:32 → PROG CARE 05:32 → CCU 08:18 → PROG CARE 01-26 19:45
PROVIDERS: Family Medicine; Internal Medicine; Internal Medicine Pulmonary Disease; ADMIT Internal Medicine
PROC: 0BH17EZ Insertion of Endotracheal Airway into Trachea, Via Natural or Artificial Opening (ICD-10-PCS; principal; 2022-01-22)
PROC: 8E0ZXY6 Isolation (ICD-10-PCS; principal; 2022-01-22)
PROC: 5A1945Z Respiratory Ventilation, 24-96 Consecutive Hours (ICD-10-PCS; principal; 2022-01-22)
PROC: 3E043XZ Introduction of Vasopressor into Central Vein, Percutaneous Approach (ICD-10-PCS; 2022-01-22)
PROC: 3E03329 Introduction of Other Anti-infective into Peripheral Vein, Percutaneous Approach (ICD-10-PCS; 2022-01-22)
DX: J96.22 Acute and chronic respiratory failure with hypercapnia (principal); A41.9 Sepsis, unspecified organism; U07.1 COVID-19; G93.41 Metabolic encephalopathy; R65.21 Severe sepsis with septic shock; T83.511A Infection and inflammatory reaction due to indwelling urethral catheter, initial encounter; N30.00 Acute cystitis without hematuria; I50.22 Chronic systolic (congestive) heart failure; J44.1 Chronic obstructive pulmonary disease with (acute) exacerbation; I69.354 Hemiplegia and hemiparesis following cerebral infarction affecting left non-dominant side; I48.20 Chronic atrial fibrillation, unspecified; T88.6XXA Anaphylactic reaction due to adverse effect of correct drug or medicament properly administered, initial encounter; J98.11 Atelectasis; J96.21 Acute and chronic respiratory failure with hypoxia; Y83.8 Other surgical procedures as the cause of abnormal reaction of the patient, or of later complication, without mention of misadventure at the time of the procedure; K21.9 Gastro-esophageal reflux disease without esophagitis; R53.81 Other malaise; F41.1 Generalized anxiety disorder; G89.4 Chronic pain syndrome; D64.9 Anemia, unspecified; L89.322 Pressure ulcer of left buttock, stage 2; L89.892 Pressure ulcer of other site, stage 2; I71.4 Abdominal aortic aneurysm, without rupture; E78.00 Pure hypercholesterolemia, unspecified; H53.8 Other visual disturbances; N31.9 Neuromuscular dysfunction of bladder, unspecified; I11.0 Hypertensive heart disease with heart failure; I48.0 Paroxysmal atrial fibrillation; T50.995A Adverse effect of other drugs, medicaments and biological substances, initial encounter; I25.10 Atherosclerotic heart disease of native coronary artery without angina pectoris; M19.90 Unspecified osteoarthritis, unspecified site; Z79.01 Long term (current) use of anticoagulants; Z95.1 Presence of aortocoronary bypass graft; Z90.49 Acquired absence of other specified parts of digestive tract; Z82.49 Family history of ischemic heart disease and other diseases of the circulatory system; Z95.5 Presence of coronary angioplasty implant and graft; Z79.82 Long term (current) use of aspirin; Z88.8 Allergy status to other drugs, medicaments and biological substances; Z88.6 Allergy status to analgesic agent
CPT/HCPCS: 31500; 36415; 36600; 71045; 80048; 80053; 81001; 82550; 82553; 82803; 82962; 83605; 83735; 83880; 84484; 85025; 85027; 85610; 87070; 87077; 87086; 87186; 87205; 92526; 92610; 93005; 94002; 94003; 94640; 94760; 96361; 96374; 96375; 97110; 97110-GP-CQ; 97162; 97166; 97530-GP-CQ; 99285; A6212; J0330; J0360; J0696; J1205; J1940; J2185; J2250; J2920; J7040; U0002